=== PATIENT | female | born 1985 | race American Indian/Alaskan Native ===

== ENCOUNTER 2017-05-19 15:21 | Emergency (ER) | payer SELFPAY ==
[2017-05-19 15:39] VITALS: BP 165/107
== END 2017-05-19 18:55 | disposition left against medical advice (07) ==
LOC: ED 15:21
DX: R07.9 Chest pain, unspecified (principal); Z53.21 Procedure and treatment not carried out due to patient leaving prior to being seen by health care provider; V89.2XXA Person injured in unspecified motor-vehicle accident, traffic, initial encounter; Y93.89 Activity, other specified; Y99.8 Other external cause status; Y92.488 Other paved roadways as the place of occurrence of the external cause
CPT/HCPCS: 93005; 93010

== ENCOUNTER 2021-09-20 10:11 | Emergency (ER) | payer MEDICAID ==
--- NOTE | 2021-09-20 11:00 | Emergency Department Report ---
HPI - General Chief Complaint: Psych Time Seen by Provider: 09/20/21 10:40 - HPI HPI: Room 24 Patient is a 36-year-old female present with chief complaint of chest pain. The patient states last night she became upset and developed pain in the left chest described as sharp in nature. Patient states she did develop some shortness of breath with it but then the symptoms improve after drinking water. Patient states she thought it might be anxiety so she decided to go to the [facility] department. Patient states she has not been taking her Risperdal for approximately 4 months because she was feeling better. Patient admits an occasional cough today that is nonproductive. Patient denies suicidal or homicidal ideation. Patient denies auditory or visual hallucinations. Patient admits to subjective fever ED Past Medical Hx - Past Medical History Previous Medical History?: Yes Hx Hypertension: Yes Hx Psychiatric Treatment: Yes (Schizophrenia) Additional medical history: bi polar, schizophrenia - Surgical History Past Surgical History?: No Additional Surgical History: - Family History Family history: no significant - Social History Smoking Status: Never Smoker Substance Use Type: None (Denies illicit drug use) - Medications Home Medications: Home Medications Medication Instructions Recorded Confirmed Last Taken Type Famotidine [Pepcid] 20 mg PO BID #20 tablet 09/20/21 Unknown Rx risperiDONE [Risperdal] 1 mg PO BID #60 tablet 09/20/21 Unknown Rx traMADoL [Ultram] 50 mg PO Q6HR PRN #10 tablet 09/20/21 Unknown Rx ED Review of Systems ROS: Stated complaint: ANXIETY Other details as noted in HPI Constitutional: fever (Subjective) Eyes: denies: eye pain ENT: denies: throat pain Respiratory: cough, shortness of breath Cardiovascular: chest pain Endocrine: no symptoms reported Gastrointestinal: denies: abdominal pain Genitourinary: denies: dysuria Musculoskeletal: denies: back pain Neurological: denies: headache Psychiatric: denies: auditory hallucinations, visual hallucinations, homicidal thoughts, suicidal thoughts Physical Exam - Physical Exam Physical Exam: GENERAL: The patient is well-developed well-nourished female lying on stretcher not appearing to be in acute distress. [] HEENT: Normocephalic. Atraumatic. Extraocular motions are intact. Patient has moist mucous membranes. NECK: Supple. Trachea midline CHEST/LUNGS: Clear to auscultation. There is no respiratory distress noted. HEART/CARDIOVASCULAR: Regular. There is no tachycardia. There is no gallop rub or murmur. ABDOMEN: Abdomen is soft, nontender. Patient has normal bowel sounds. There is no abdominal distention. SKIN: There is no rash. There is no edema. There is no diaphoresis. NEURO: The patient is awake, alert, and oriented. The patient is cooperative. The patient has no focal neurologic deficits. The patient has normal speech. GCS 15 MUSCULOSKELETAL: There is no evidence of acute injury. ED Medical Decision Making - Lab Data Result diagrams: 09/20/21 10:56 09/20/21 10:56 Laboratory Tests 09/20/21 09/20/21 09/20/21 10:56 10:56 10:56 WBC 3.5 L RBC 4.76 Hgb 12.6 Hct 37.3 MCV 78 L MCH 27 L MCHC 34 RDW 13.4 Plt Count 269 Lymph % (Auto) 46.1 H [place] % (Auto) 7.3 Eos % (Auto) 1.5 Baso % (Auto) 0.9 Lymph # (Auto) 1.6 [place] # (Auto) 0.3 Eos # (Auto) 0.1 Baso # (Auto) 0.0 Seg Neutrophils % 44.2 Seg Neutrophils # 1.5 L D-Dimer 248.65 H Sodium 140 Potassium 3.6 Chloride 105.2 Carbon Dioxide 22 Anion Gap 16 BUN 8 Creatinine 0.7 Estimated GFR > 60 BUN/Creatinine Ratio 11 Glucose 95 Calcium 9.6 Total Creatine Kinase 131 CK-MB (CK-2) < 1.0 CK-MB (CK-2) Rel Index 0.7 Troponin T < 0.010 HCG, Qual 09/20/21 10:56 WBC RBC Hgb Hct MCV MCH MCHC RDW Plt Count Lymph % (Auto) [place] % (Auto) Eos % (Auto) Baso % (Auto) Lymph # (Auto) [place] # (Auto) Eos # (Auto) Baso # (Auto) Seg Neutrophils % Seg Neutrophils # D-Dimer Sodium Potassium Chloride Carbon Dioxide Anion Gap BUN Creatinine Estimated GFR BUN/Creatinine Ratio Glucose Calcium Total Creatine Kinase CK-MB (CK-2) CK-MB (CK-2) Rel Index Troponin T HCG, Qual Negative - EKG Data -: EKG Interpreted by Me EKG shows normal: sinus rhythm, axis Rate: normal - EKG Data When compared to previous EKG there are: previous EKG unavailable Interpretation: nonspecific ST-T wave jd - Radiology Data Radiology results: image reviewed (Chest x-ray) interpreted by me: Chest x-ray-no definite focal infiltrates, no pneumothorax - Differential Diagnosis Anxiety, ACS, PE, GERD, pericarditis, pneumonia Critical care attestation.: If time is entered above; I have spent that time in minutes in the direct care of this critically ill patient, excluding procedure time. ED Disposition Clinical Impression: Atypical chest pain Disposition: HOME / SELF CARE / HOMELESS Is pt being admited?: No Does the pt Need Aspirin: No Condition: Stable Instructions: Nonspecific Chest Pain, Adult Additional Instructions: Return to the emergency department should you develop worsening symptoms, inability to tolerate food or liquids, high fever or any other concerns Prescriptions: Famotidine [Pepcid] 20 mg PO BID #20 tablet risperiDONE [Risperdal] 1 mg PO BID #60 tablet traMADoL [Ultram] 50 mg PO Q6HR PRN #10 tablet PRN Reason: Pain Referrals: [facility] [Provider Group] - 3-5 Days VÍCTOR HART MD [Staff Physician] - 3-5 Days (Dr Hart is a news technical director. Please follow-up with him for further evaluation) Time of Disposition: 13:40 Heart Score - HEART Score History: Slightly suspicious EKG: Non-specific Age: < 45 Risk factors: 1-2 risk factors Troponin: < normal limit HEART Score: 2 - EKG Read Time Time EKG Completed: 10:19 EKG Read Time: 10:31
[2021-09-20 11:30] LABS: Basophils % (Auto) 0.9 % (0.0-1.8); Eosinophils # (Auto) 0.1 K/mm3 (0.0-0.4); Eosinophils % (Auto) 1.5 % (0.0-4.3); Hematocrit 37.3 % (30.3-42.9); Hemoglobin 12.6 gm/dl (10.1-14.3); Lymphocytes # (Auto) 1.6 K/mm3 (1.2-5.4); Lymphocytes % (Auto) 46.1 % (13.4-35.0); Mean Corpuscular HGB Conc 34 % (30-34); Mean Corpuscular Volume 78 fl (79-97); Monocytes # (Auto) 0.3 K/mm3 (0.0-0.8); Monocytes % (Auto) 7.3 % (0.0-7.3); Platelet Count 269 K/mm3 (140-440); Red Blood Count 4.76 M/mm3 (3.65-5.03); Red Cell Distribution Width 13.4 % (13.2-15.2)
--- NOTE | 2021-09-20 12:57 | Consultation ---
History of Present Illness - Reason for Consult Consult date: 09/20/21 Reason for consult: schizophrenia, off meds - History of Present Psychiatric Illness HPI: Patient is a 36-year-old female present with chief complaint of chest pain. The patient states last night she became upset and developed pain in the left chest described as sharp in nature. Patient states she did develop some shortness of breath with it but then the symptoms improve after drinking water. Patient states she thought it might be anxiety so she decided to go to the [facility] department. Patient states she has not been taking her Risperdal for approximately 4 months because she was feeling better. Patient admits an occasional cough today that is nonproductive. Patient denies suicidal or homicidal ideation. Patient denies auditory or visual hallucinat ions. Patient admits to subjective fever. The patient was seen today. She is calm, cooperative and polite. She says she got upset last night because she thought her co-worker was talking about her. The patient says she became anxious. She says when she went home she calmed down, but came to the hospital to make sure she wasn't relapsing with her schizophrenia. The patient says she was on Risperidine 2mg twice daily but stopped taking it "because I was feeling great." She says "then it was making me so sleepy." She says "I could hardly stay awake on it." The patient denies SI/HI or hallucinations of any kind. Discussed with the patient decreasing the risperidine by half and see if this reduces her daytime drowsiness. She agrees with this plan. Will give script for Risperidone 1mg po BID. PAST PSYCHIATRIC HISTORY Diagnoses: Schizophrenia Suicide attempts or Self-harm behavior: Denies Prior psychiatric hospitalizations: Denies Substance Abuse history: Alcohol Previous psychiatric medications tried: Denies Outpatient treatment: Denies PAST MEDICAL HISTORY: None reported Family Psychiatric History: None reported or documented SOCIAL HISTORY Marital Status: Living Arrangements: with spouse Employment Status: Disabled Access to guns/weapons: Denies Education: History of Abuse: Denies Legal History: Denies REVIEW OF SYSTEMS Constitutional: Negative for weight loss ENT: Negative for stridor Respiratory: Negative for cough or hemoptysis All other systems reviewed and are negative MENTAL STATUS EXAMINATION General Appearance and Behavior: Age appropriate, good hygiene, wearing appropriate clothes, good eye contact, calm, cooperative, polite Cooperation: Cooperative Psychomotor Behavior: Psychomotor normal Mood: depressed Affect and affective range: congruent with stated mood Thought Process: goal directed Thought Content: None Speech: normal tone and pace Suicidal Ideation: Denies Homicidal Ideation: Denies Hallucinations: Denies Delusions: None elicited Impulse Control: Limited Insight and Judgment: Limited insight and judgment Memory: Limited Attention: attentive Orientation: Alert, oriented Assessment and Plan Hx of Schizophrenia Treatment Plan Risperidone 1mg po BID Medical: per primary Sitter: defer to primary Disposition: Do not recommend acute psychiatric inpatient treatment The bass viol repairer to give the patient all necessary outpatient resources to The patient to follow in 7 to 14 days upon discharge Will sign off. Thank you Case staffed with Dr. De Leon. Medications and Allergies Allergies Allergy/AdvReac Type Severity Reaction Status Date / Time No Known Allergies Allergy Unverified 05/19/17 15:37 Mental Status Exam - Vital signs Last Vital Signs Temp 97.8 F 09/20/21 11:36 Pulse 66 09/20/21 11:36 Resp 14 09/20/21 11:36 BP 128/84 09/20/21 11:36 Pulse Ox 99 09/20/21 11:36 Results Result Diagrams: 09/20/21 10:56 Abnormal lab results 09/20/21 09/20/21 Range/Units 10:56 10:56 WBC 3.5 L (4.5-11.0) K/mm3 MCV 78 L (79-97) fl MCH 27 L (28-32) pg Lymph % (Auto) 46.1 H (13.4-35.0) % Seg Neutrophils # 1.5 L (1.8-7.7) K/mm3 D-Dimer 248.65 H (0-234) ng/mlDDU All other labs normal.
--- NOTE | 2021-09-20 13:23 | XRay Report ---
CHEST 2 VIEWS INDICATION / CLINICAL INFORMATION: chest pain. COMPARISON: 02/07/2020 FINDINGS: SUPPORT DEVICES: None. HEART / MEDIASTINUM: No significant abnormality. LUNGS / PLEURA: No significant pulmonary or pleural abnormality. No pneumothorax. ADDITIONAL FINDINGS: No significant additional findings. IMPRESSION: 1. No acute findings. Signer Name: Conner Tovar Jr, MD Signed: 09/20/2021 1:18 PM Workstation Name: [id number]
[2021-09-20 13:30] LABS: Blood Urea Nitrogen 8 mg/dL (7-17); Calcium 9.6 mg/dL (8.4-10.2); Hemolysis Index 1
[2021-09-20 13:34] LABS: Creatine Kinase MB < 1.0 ng/mL (0.0-4.0)
[2021-09-20 13:35] LABS: BUN/Creatinine Ratio 11
[2021-09-20 14:35] VITALS: BP 120/69
--- NOTE | 2021-09-22 18:09 | Electrocardiograph Report ---
[facility] Test Date: 2021-09-20 Test Time: 10:19:49 Pat Name: ELLIE JADE Department: Room: Gender: F Nurses Director: VENITA : 1985 Requested By: ED DOC Order Number: [id number] Reading MD: Vignesh Mora Measurements Intervals Theodore Rate: 78 P: 75 TX: 133 QRS: 78 QRSD: 81 T: -35 QT: 343 QTc: 389 Interpretive Statements Sinus rhythm Probable left atrial enlargement Borderline T abnormalities, diffuse leads No previous ECG available for comparison Electronically Signed On 09-22-2021 18:09:12 EDT by Vignesh Mora
== END 2021-09-20 14:44 | disposition home or self-care (01) ==
LOC: ED 10:11
DX: R07.9 Chest pain, unspecified (principal); I10 Essential (primary) hypertension; F20.89 Other schizophrenia
CPT/HCPCS: 36415; 71046; 80048; 82550; 82553; 84484; 84703; 85025; 85379; 93005; 99284

== ENCOUNTER 2021-10-20 21:25 | Emergency (ER) | payer MEDICAID ==
[2021-10-20 23:50] LABS: Basophils % (Auto) 0.9 % (0.0-1.8); Eosinophils # (Auto) 0.1 K/mm3 (0.0-0.4); Eosinophils % (Auto) 0.9 % (0.0-4.3); Hematocrit 36.1 % (30.3-42.9); Hemoglobin 11.9 gm/dl (10.1-14.3); Lymphocytes # (Auto) 1.8 K/mm3 (1.2-5.4); Lymphocytes % (Auto) 33.9 % (13.4-35.0); Mean Corpuscular HGB Conc 33 % (30-34); Mean Corpuscular Volume 80 fl (79-97); Monocytes # (Auto) 0.3 K/mm3 (0.0-0.8); Monocytes % (Auto) 6.3 % (0.0-7.3); Platelet Count 265 K/mm3 (140-440); Red Blood Count 4.49 M/mm3 (3.65-5.03); Red Cell Distribution Width 13.8 % (13.2-15.2)
[2021-10-20 23:59] LABS: Alanine Aminotransferase 14 units/L (7-56); Albumin 4.7 g/dL (3.9-5); BUN/Creatinine Ratio 14; Blood Urea Nitrogen 11 mg/dL (7-17); Calcium 9.5 mg/dL (8.4-10.2); Hemolysis Index 5
[2021-10-21 01:55] LABS: Amorphous Crystals,Urine 1+; Bacteria,Urine 1+ /HPF (Negative); Mucus,Urine FEW /HPF
[2021-10-21 02:11] LABS: Amphetamine Screen,Urine PRESUMPTIVE NEGATIVE; Benzodiazepines Screen,Urine PRESUMPTIVE NEGATIVE; Cannabinoid Screen,Urine PRESUMPTIVE NEGATIVE; Cocaine Screen,Urine PRESUMPTIVE NEGATIVE; Methadone Screen,Urine PRESUMPTIVE NEGATIVE; Opiate Screen,Urine PRESUMPTIVE NEGATIVE
[2021-10-21 02:16] LABS: Bilirubin,Urine Negative (Negative); Color,Urine Yellow (Yellow)
[2021-10-21 02:17] LABS: Blood,Urine Negative (Negative)
--- NOTE | 2021-10-21 05:35 | Emergency Department Report ---
ED Psych HPI - General Chief Complaint: Psych Stated Complaint: LACK OF SLEEP/ANXIETY Time Seen by Provider: 10/20/21 22:40 Source: patient Mode of arrival: Ambulatory - History of Present Illness Initial Comments: Patient is a 36-year-old female presented ED with complaint of anxiety and insomnia for the past couple of weeks. Denies SI or HI. - Related Data Previous Rx's Medication Instructions Recorded Last Taken Type Famotidine [Pepcid] 20 mg PO BID #20 tablet 09/20/21 Unknown Rx risperiDONE [Risperdal] 1 mg PO BID #60 tablet 09/20/21 Unknown Rx traMADoL [Ultram] 50 mg PO Q6HR PRN #10 tablet 09/20/21 Unknown Rx Allergies Allergy/AdvReac Type Severity Reaction Status Date / Time No Known Allergies Allergy Unverified 05/19/17 15:37 ED Review of Systems ROS: Stated complaint: LACK OF SLEEP/ANXIETY Other details as noted in HPI Comment: All other systems reviewed and negative Constitutional: denies: chills, fever Respiratory: denies: cough, shortness of breath, wheezing Cardiovascular: denies: chest pain, palpitations Gastrointestinal: denies: abdominal pain, nausea, diarrhea Musculoskeletal: denies: back pain, joint swelling, arthralgia Skin: denies: rash, lesions Psychiatric: anxiety. denies: auditory hallucinations, visual hallucinations, homicidal thoughts, suicidal thoughts ED Past Medical Hx - Past Medical History Hx Hypertension: Yes Hx Psychiatric Treatment: Yes (Schizophrenia) Additional medical history: bi polar, schizophrenia - Surgical History Additional Surgical History: - Social History Smoking Status: Never Smoker Substance Use Type: None (Denies illicit drug use) - Medications Home Medications: Home Medications Medication Instructions Recorded Confirmed Last Taken Type Famotidine [Pepcid] 20 mg PO BID #20 tablet 09/20/21 Unknown Rx risperiDONE [Risperdal] 1 mg PO BID #60 tablet 09/20/21 Unknown Rx traMADoL [Ultram] 50 mg PO Q6HR PRN #10 tablet 09/20/21 Unknown Rx ED Physical Exam - General Limitations: No Limitations General appearance: alert, in no apparent distress - Head Head exam: Present: atraumatic, normocephalic - Respiratory Respiratory exam: Present: normal lung sounds bilaterally. Absent: respiratory distress - Cardiovascular Cardiovascular Exam: Present: regular rate, normal rhythm, normal heart sounds - GI/Abdominal GI/Abdominal exam: Present: soft. Absent: distended, tenderness - Rectal Rectal exam: Present: deferred - Neurological Exam Neurological exam: Present: alert, oriented X3 - Psychiatric Psychiatric exam: Present: normal affect, normal mood - Skin Skin exam: Present: warm, dry, intact, normal color ED Course Vital Signs 10/20/21 21:31 Temperature 98.8 F Pulse Rate 108 H Respiratory 18 Rate Blood Pressure 131/83 O2 Sat by Pulse 100 Oximetry ED Medical Decision Making - Lab Data Result diagrams: 10/20/21 22:57 10/20/21 22:57 - Medical Decision Making Labs grossly unremarkable. On reassessment patient is sleeping comfortably in bed. Does not meet criteria for 1013/inpatient treatment. Will discharge home with return precautions. Critical care attestation.: If time is entered above; I have spent that time in minutes in the direct care of this critically ill patient, excluding procedure time. ED Disposition Clinical Impression: Anxiety, Insomnia Disposition: HOME / SELF CARE / HOMELESS Is pt being admited?: No Condition: Stable Instructions: Insomnia, Managing Anxiety, Adult Referrals: MIRANDA GALARZA MD [Primary Care Provider] - 3-5 Days
[2021-10-21 08:15] VITALS: BP 120/81
--- NOTE | 2021-10-21 09:35 | Electrocardiograph Report ---
[facility] Test Date: 2021-10-20 Test Time: 21:48:51 Pat Name: ELLIE JADE Department: Room: Gender: F Rod Piler: SHADIA : 1985 Requested By: CHARAN MEDINA Order Number: [id number] Reading MD: Raoul Gonzales Measurements Intervals [place] Rate: 97 P: 68 CT: 124 QRS: 76 QRSD: 77 T: -64 QT: 322 QTc: 409 Interpretive Statements Sinus rhythm nonspecific st-t Compared to ECG 09/20/2021 10:19:49 T-wave abnormality no longer present Electronically Signed On 10-21-2021 9:35:15 EDT by Raoul Gonzales
== END 2021-10-21 08:15 | disposition home or self-care (01) ==
LOC: ED 21:25
DX: F41.9 Anxiety disorder, unspecified (principal); G47.00 Insomnia, unspecified; I10 Essential (primary) hypertension; F31.9 Bipolar disorder, unspecified; F20.9 Schizophrenia, unspecified; Z98.890 Other specified postprocedural states
CPT/HCPCS: 36415; 80053; 80307; 80320; 81001; 84703; 85025; 93005; 99283; G0480